=== PATIENT | male | born 1980 | race African-American/Black ===

== ENCOUNTER 2020-02-04 15:11 | Outpatient (REF) | payer OTHER, SELFPAY ==
[2020-02-04 16:19] LABS: Anion Gap 14 (12-20); Blood Urea Nitrogen 14 mg/dL (9-16); Calcium 9.7 mg/dL (8.4-10.2); Carbon Dioxide 27 mmol/L (22-29); Chloride 101 mmol/L (96-108); Estimated Glomerular Filt Rate > 60; Glucose Fasting 112 mg/dL (60-99); Potassium 4.6 mmol/l (3.3-5.1); Sodium 137 mmol/L (135-145)
[2020-02-05 07:46] LABS: Syphilis Screen Nonreactive (Nonreactive)
[2020-02-06 01:33] LABS: Lyme Abs Screen <0.90 index
== END 2020-02-04 15:12 | disposition home or self-care (01) ==
LOC: HO.LAB 15:11
PROVIDERS: PCP Internal Medicine; Visit Provider Psychiatry & Neurology Neurology
DX: G62.9 Polyneuropathy, unspecified (principal)
CPT/HCPCS: 80048; 86618; 86780

== ENCOUNTER → 2020-10-26 10:24 | Outpatient (BNVA) | payer SELFPAY | PROVIDERS: PCP Internal Medicine | DX: Z76.89 Persons encountering health services in other specified circumstances (principal) ==

== ENCOUNTER → 2021-10-06 10:49 | Outpatient (BNVA) | payer SELFPAY | PROVIDERS: PCP Internal Medicine | DX: Z02.83 Encounter for blood-alcohol and blood-drug test (principal) ==

== ENCOUNTER 2022-03-29 23:03 | Emergency (ER) | payer OTHER, SELFPAY ==
[2022-03-29 23:20] VITALS: BP 129/81; PULSE 106; O2SAT 95; BMI 23.8
--- NOTE | 2022-03-29 23:46 | ED_ITS ---
HPI - General Adult General Chief complaint: General Medical Stated complaint: elevated poc Time Seen by Provider: 03/29/22 23:45 Source: patient Mode of arrival: EMS Limitations: no limitations History of Present Illness HPI narrative: Patient borderline diabetic blood sugar usually less than 150 had increased alcohol last night and apple juice prior to arrival checked the blood sugar was 296 at home patient started feeling dizzy called EMS and patient came here blood sugar was 157 Related Data Allergies Allergy/AdvReac Type Severity Reaction Status Date / Time No Known Allergies Allergy Unverified 11/14/19 19:18 [No Known Allergies*] Review of Systems Review of Systems: Yes all other systems are reviewed and are negative [facility] Social History Social History Advance Directives: No Advance Directives Information Provided: No Physical Exam ED Vital Signs: Vital Signs - 24 hr 03/30/22 00:21 Temperature 97.6 F Pulse Rate 89 Respiratory Rate 12 Blood Pressure 136/93 H Pulse Oximetry 98 Oxygen Delivery Method Room Air BMI result Body Mass Index 23.8 Appearance: Alert. Oriented X3. No acute distress. Anxious Eyes: PERRLA, No Nystagmus ENT: Pharynx normal. Oral Mucosa moist Neck: Normal inspection. Neck supple. CVS: Normal heart rate and rhythm. Pulses normal. Respiratory: No respiratory distress. Equal air entry bilateral, no wheezing/rales/rhonchi Abdomen: Soft and nontender. Bowel sounds are present, no mass palpable, no CVA tenderness Skin: Skin warm and dry. Normal skin color. Normal skin turgor. Extremities: No lower extremity edema. No calf tenderness Neuro: Oriented X 3. No motor deficit. No sensory deficit. Medical Decision Making Medical Decision Making MDM Narrative: Patient advised diet control and exercise and follow with PCP for further management of diabetes Lab Data MDM Lab Attestation statement: I reviewed the patient's lab results. Labs: Lab Results 03/30/22 Range/Units 00:05 POC Glucose 157 H (60-115) mg/dL Discharge Plan Discharge Clinical Impression: Diabetes mellitus, new onset Patient Disposition: Home, Self-Care Instructions: Type 2 Diabetes in Adults: New Diagnosis (ED) Additional Instructions: Drink plenty of fluids Exercise, Diet restrictions as advised Avoid high glucose containing drinks Follow with PCP Interventions: ED Discharge Assessment Last Done: 03/30/22 00:22 Discharge Date/Time: 03/30/22 00:22
[2022-03-30 00:10] LABS: Glucose, Whole Blood 157 mg/dL (60-115)
--- NOTE | 2022-03-30 00:17 | PC.NURSE ---
IV line removed per pts request. Pt tolerated well. Discharge instructions reviewed with pt. Pt verbalizes understanding.
[2022-03-30 00:21] VITALS: BP 136/93; PULSE 89; RESP 12; TEMP 36.4; O2SAT 98
== END 2022-03-30 00:22 | disposition home or self-care (01) ==
PROVIDERS: Emergency Provider Internal Medicine; PCP Internal Medicine
DX: E11.9 Type 2 diabetes mellitus without complications (principal); R42 Dizziness and giddiness; Z79.899 Other long term (current) drug therapy
CPT/HCPCS: 82947; 99283

== ENCOUNTER 2022-11-03 15:31 | Inpatient (IN) | payer OTHER, SELFPAY ==
--- NOTE | ~2022-11-03 | CT_ITS ---
EXAMINATION: CT HEAD WITHOUT CONTRAST CT CERVICAL SPINE WITHOUT CONTRAST CLINICAL INFORMATION: Unwitnessed fall COMPARISON: None. TECHNIQUE: Imaging was performed from the skull base to vertex without intravenous administration of contrast. In addition, helical noncontrast CT imaging was acquired through the cervical spine and source images were reviewed along with axial reconstructions and sagittal and coronal MPRs. [This CT examination was performed using dose optimization techniques as appropriate, variously including the following: *Automated exposure control *Adjustment of mA and/or kV according to patient size (this includes techniques or standardized protocols for targeted exams where dose is matched to indication/reason for exam; i.e. extremities or head) *Use of iterative reconstruction technique] DLP: 1804 mGy-cm FINDINGS: HEAD: No intracranial mass, hemorrhage, or midline shift is visualized. The ventricles and sulci are proportional. No extra-axial collections are identified. The paranasal sinuses and mastoid air cells are well aerated. CERVICAL SPINE: There is no evidence of acute cervical spine fracture. Vertebral bodies remain normal in height. Cervical vertebrae have normal alignment. There is multilevel degenerative spondylosis of the cervical spine with disc height narrowing and endplate spurs and facet joint arthrosis No pre- or paravertebral soft tissue abnormality is identified. Limited assessment of the lung apices is unremarkable. CT/CT head/brain wo IV con IMPRESSION: 1. No acute intracranial pathology. 2. No CT evidence of acute cervical spine fracture or traumatic subluxation
--- NOTE | ~2022-11-03 | CT_ITS ---
EXAMINATION: CT HEAD WITHOUT CONTRAST CT CERVICAL SPINE WITHOUT CONTRAST CLINICAL INFORMATION: Unwitnessed fall COMPARISON: None. TECHNIQUE: Imaging was performed from the skull base to vertex without intravenous administration of contrast. In addition, helical noncontrast CT imaging was acquired through the cervical spine and source images were reviewed along with axial reconstructions and sagittal and coronal MPRs. [This CT examination was performed using dose optimization techniques as appropriate, variously including the following: *Automated exposure control *Adjustment of mA and/or kV according to patient size (this includes techniques or standardized protocols for targeted exams where dose is matched to indication/reason for exam; i.e. extremities or head) *Use of iterative reconstruction technique] DLP: 1804 mGy-cm FINDINGS: HEAD: No intracranial mass, hemorrhage, or midline shift is visualized. The ventricles and sulci are proportional. No extra-axial collections are identified. The paranasal sinuses and mastoid air cells are well aerated. CERVICAL SPINE: There is no evidence of acute cervical spine fracture. Vertebral bodies remain normal in height. Cervical vertebrae have normal alignment. There is multilevel degenerative spondylosis of the cervical spine with disc height narrowing and endplate spurs and facet joint arthrosis No pre- or paravertebral soft tissue abnormality is identified. Limited assessment of the lung apices is unremarkable. CT/CT cervical spine wo IV con IMPRESSION: 1. No acute intracranial pathology. 2. No CT evidence of acute cervical spine fracture or traumatic subluxation
--- NOTE | 2022-11-03 15:50 | ECG_ITS ---
Test Reason : tachycardia Blood Pressure : / mmHG Vent. Rate : 118 BPM Atrial Rate : 118 BPM P-R Int : 134 ms QRS Dur : 084 ms QT Int : 336 ms P-R-T Axes : 063 063 027 degrees QTc Int : 470 ms Sinus tachycardia Possible Lateral infarct , age undetermined Abnormal ECG When compared with ECG of 02-MAY-2017 21:35, Vent. rate has increased BY [address] no longer elevated in Anterior leads Referred By: Katheryn Naejra Electronically Signed By:SKY QUILES
[2022-11-03 15:54] VITALS: BP 158/94; BP 170/114; PULSE 117; PULSE 130; RESP 22; TEMP 36.9; O2SAT 99; BMI 25.8
[2022-11-03 16:02] LABS: Glucose, Whole Blood 160 mg/dL (60-115)
[2022-11-03] MEDS: LORazepam 2 MG/ML VIAL 1 MG IVPUSH (16:16)
[2022-11-03] MEDS: Thiamine HCL 200 MG in 0.9 % Sodium Chloride 100 ML 204 MG IV (16:16)
[2022-11-03] MEDS: 0.9 % Sodium Chloride 1,000 ML 999 ML IVCONT (16:17)
[2022-11-03 16:36] LABS: MANUAL DIFF FLAG NO
[2022-11-03 16:38] LABS: VBG Base Excess -4.5 mmol/L; VBG HCO3 18 mmol/L (22-26); VBG pCO2 28 mmHg; VBG pH 7.41 (7.32-7.43); VBG pO2 103 mmHg
[2022-11-03 16:41] LABS: Venous Blood Gas Refer to POC result
[2022-11-03 16:44] LABS: Ammonia 54 umol/L (13-55); Basophils Percent Auto 0.5 % (0-2); Eosinophils Absolute Auto 0.2 X10*3/uL (0.0-0.4); Eosinophils Percent Auto 2.6 % (0-4); Hematocrit 46.6 % (42.0-52.0); Hemoglobin 16.1 g/dl (14.0-18.0); Imm Gran Abs Auto 0.02 X10*3/uL (0.00-0.03); Imm Gran Pct Auto 0.3 % (0.0-0.4); Lymphocytes Absolute Auto 1.8 X10*3/uL (1.2-4.9); Lymphocytes Percent Auto 27.9 % (20-40); Mean Corpuscular HGB Conc 34.5 g/dl (31.0-36.0); Mean Corpuscular Hemoglobin 31.1 pg (27.0-33.0); Mean Platelet Volume 11.7 fL (9.4-12.4); Monocytes Absolute Auto 0.3 X10*3/uL (0.1-1.2); Monocytes Percent Auto 3.9 % (2-11); Neutrophils Absolute Auto 4.2 x10*3/uL (2.0-8.3); Neutrophils Percent Auto 64.8 % (45-73); Platelet Count 235 X10*3/uL (160-400); Red Blood Count 5.18 X10*6/uL (4.60-5.80); Red Cell Distribution Width 11.1 % (11.0-16.0); White Blood Count 6.5 X10*3/uL (4.8-10.8)
[2022-11-03 16:50] LABS: Ethanol 354 mg/dL
[2022-11-03 16:53] LABS: Alanine Aminotransferase 76 U/L (0-40); Albumin Level 4.6 g/dL (3.5-5.0); Alkaline Phosphatase 69 U/L (39-117); Anion Gap 20 (12-20); Aspartate Amino Transferase 48 U/L (5-37); Bilirubin Direct 0.4 mg/dL (0.0-0.5); Bilirubin Total 1.3 mg/dL (0.0-1.0); Blood Urea Nitrogen 8 mg/dL (9-16); Carbon Dioxide 18 mmol/L (22-29); Chloride 106 mmol/L (96-108); Creatinine Clr Calc Pharmacy 138.5; Estimated Glomerular Filt Rate > 60; Glucose Random 130 mg/dL (60-115); Lipase 27 U/L (8-78); Magnesium 2.3 mg/dL (1.6-2.6); Potassium 3.5 mmol/L (3.3-5.1); Sodium 140 mmol/L (135-145); Total Protein 7.9 g/dL (6.5-8.0)
[2022-11-03 16:54] LABS: Prothrombin Time 12.4 SEC (11.1-13.3)
[2022-11-03 16:55] LABS: Acetaminophen LAB < 17 mcg/mL (<30); Salicylate < 5.0 mg/dL (15-30)
[2022-11-03 17:05] LABS: Appearance Urine Clear; Color Urine Yellow; Glucose Urine UA Negative (Negative); Leukocyte Esterase Urine Negative (Negative); Nitrite Urine Negative (Negative); Specific Gravity - Urine <= 1.005 (1.005-1.025); Urine Blood Negative (Negative); Urine Ketones Negative (Negative); Urine Protein Negative (Neg-Trace)
[2022-11-03 17:08] LABS: Troponin-I High Sensitivity < 2.7 ng/L (<3.5-35.0)
[2022-11-03 17:15] VITALS: BP 126/80; PULSE 114; RESP 22; O2SAT 99
[2022-11-03] MEDS: 0.9 % Sodium Chloride 2,000 ML 999 ML IV (17:16)
[2022-11-03 17:20] LABS: Amphetamine Screen Urine Not Detected (Not Detect); Barbiturates, Urine Not Detected (Not Detect); Benzodiazepines Screen Urine Not Detected (Not Detect); Cannabinoid Screen Urine Not Detected (Not Detect); Cocaine Screen Urine Not Detected (Not Detect); Fentanyl, urine Not Detected (Not Detect); Opiate Screen Urine Not Detected (Not Detect); Phencyclidine Screen Urine Not Detected (Not Detect)
--- NOTE | 2022-11-03 17:30 | ED_ITS ---
HPI - Altered Mental Status General Chief Complaint: Altered Mental Status Stated Complaint: AMS Time Seen by Provider: 11/03/22 16:01 Source: patient Mode of arrival: EMS History of Present Illness HPI narrative: 42-year-old male with significant difficulty providing any history is brought in by EMS after his uncle checked up on him at home and found the patient on the floor confused and incontinent of urine. Patient denies pain anywhere in his body currently, knows that he is in [place]. He does state that he last drank [place] this morning. Related Data Previous Rx's Medication Instructions Recorded cyclobenzaprine 10 mg tablet 10 mg PO TID PRN muscle spasm #14 06/23/22 tabs Allergies Allergy/AdvReac Type Severity Reaction Status Date / Time No Known Allergies Allergy Unverified 06/23/22 13:15 [No Known Allergies*] Review of Systems 2 Review of Systems: Pertinent positives and negatives as stated in HPI PMFSH Past Medical History Source: nursing notes reviewed Social History Social History Alcohol intake: current Patient Tobacco Use Status: Never used Tobacco Use of substances other than those prescribed or required for medical reasons: No Advance Directives: No Advance Directives Information Provided: No Physical Exam ED Vital Signs: Vital Signs - 24 hr 11/03/22 15:54 11/03/22 17:15 11/03/22 17:55 Temperature 98.4 F Pulse Rate 117 H 114 H 99 Respiratory Rate 22 H 22 H 16 Blood Pressure 158/94 H 126/80 115/73 Pulse Oximetry 99 99 98 Oxygen Delivery Method Room Air Room Air Room Air 11/03/22 18:27 11/03/22 22:09 Temperature 98.7 F Pulse Rate 94 112 H Respiratory Rate 22 H 17 Blood Pressure 119/71 124/93 H Pulse Oximetry 97 97 Oxygen Delivery Method Room Air Room Air BMI result Body Mass Index 25.8 VITAL SIGNS: Reviewed. GENERAL: Well developed, well nourished, in no acute distress, smells of alcohol. HEAD: Normocephalic/atraumatic EYES: PERRLA, EOMI EARS: Ext canals without abnormality NOSE: Nares patent bilateral OROPHARYNX: no oral lesions noted, posterior pharynx clear NECK: Supple, no adenopathy LUNGS: Normal breath sounds. No adventitious sounds or accessory muscle use. SpO2<99> CARDIOVASCULAR: Regular rate and rhythm without noted murmurs ABDOMEN: Soft, non-tender, non-distended with bowel sounds. MUSCULOSKELETAL: No tenderness, deformities, or effusions noted on gross inspection. EXTREMITIES: No cyanosis, clubbing or edema. SKIN: Inspection of the skin reveals no rashes NEUROLOGIC: Alert and oriented x 3. Strength and sensation to light touch were grossly intact x 4. Medications Administered Discontinued Medications Generic Name Dose Route Start Last Admin Trade Name Freq PRN Reason Stop Dose Admin Sodium Chloride 1,000 mls @ 999 mls/hr 11/03/22 16:00 11/03/22 17:57 Ns IVCONT 11/03/22 17:00 Infused .Q1H1M TEODORA Infusion Thiamine HCl 200 mg/ Sodium 102 mls @ 204 mls/hr 11/03/22 15:51 11/03/22 16:57 Chloride IV 11/03/22 16:20 Infused ONCE ONE Infusion Sodium Chloride 2,000 mls @ 999 mls/hr 11/03/22 17:15 11/03/22 19:28 Ns IV 11/03/22 19:15 Infused .Q2H1M TEODORA Infusion Lactated Ringer's 1,000 mls @ 999 mls/hr 11/03/22 21:00 11/03/22 21:26 Lr IV 11/03/22 22:00 999 mls/hr .Q1H1M TEODORA Administration Lorazepam 1 mg 11/03/22 15:51 11/03/22 16:16 Lorazepam 2 Mg/Ml Vial IVPUSH 11/03/22 15:52 1 mg STAT STA Administration Medical Decision Making Medical Decision Making [facility] Narrative: 1715: 42-year-old male with history and clinical presentation, DDX: Possible fall with intracranial hemorrhage, alcohol intoxication, seizure, infection. I reviewed all investigations and hematologic indices are grossly within normal limits without leukocytosis/left shift/anemia/thrombocytopenia. Coagulation studies are grossly within normal limits. VBG does not demonstrate any respiratory acidosis. Chemistry indices demonstrate a mild metabolic acidosis likely secondary to lactic acidosis of 5 which is not associated with any evidence of infection and instead suspect alcoholic ketoacidosis. On repeat lactic acid this has improved after IV fluids. There is mild CPK elevation but again patient did receive a total of 3 L of IV fluids, high sensitivity troponin is undetectable and there is an elevation of liver enzymes although this is likely secondary to patient's alcohol use. He has no corresponding abdominal discomfort or jaundice to otherwise suggest a cholecystitis picture. Urinalysis is negative for UTI or hematuria and toxicology is negative for evidence of salicylate or acetaminophen poisoning, UDS is negative for occult drugs and ethyl alcohol is elevated as suspected to 354. CT scan negative for intracranial hemorrhage and no evidence of cervical spine fracture or subluxation. Otherwise, my interpretation of the CT scans are in agreement with radiology's impression. 2044: I re-evaluated the patient at bedside and he states he is feeling much better and denies ever having any seizures associated with alcohol withdrawal. He is otherwise ambulating with a steady gait. His family to include his are at bedside and he states that he wishes to seek inpatient detox. Patient is otherwise medically cleared for further evaluation for placement for alcohol detox. Patient placed in physician observation because the patient needed more time for evaluation and possible placement by the care team into an inpatient alcohol detox.. At the time observation was started the patient's vital signs were stable, patient is alert and oriented, neuro: Nonfocal, CV RRR, lungs clear 2313: I trended patient's lactic acid which showed minimal improvement, patient is afebrile there is no clinical suspicion for infectious etiology and I suspect that this is metabolically driven by a combination rhabdomyolysis and at alcoholic ketoacidosis. Patient is noted to be tachycardic and at this time I am making the decision to admit the patient for further observation and have placed him on a phenobarb protocol and discussed the case with the inpatient hospitalist who accepts admission. Differential Diagnosis Differential Diagnoses: The differential diagnosis associated with the presentation includes Please see the discussion above Admission/Observation Consideration of admission/observation: Escalation of care including admission/observation considered Please see the discussion above Consult Healthcare Provider Management of the patient was discussed with: Clinical Practice Consultant Please see the discussion above Lab Data MDM Lab Attestation statement: I reviewed the patient's lab results. Please see the discussion above 11/03/22 16:26 11/03/22 16:26 Labs: Lab Results 11/03/22 11/03/22 11/03/22 Range/Units 15:51 16:26 16:27 WBC 6.5 (4.8-10.8) X10*3/uL RBC 5.18 (4.60-5.80) X10*6/uL Hgb 16.1 (14.0-18.0) g/dl Hct 46.6 (42.0-52.0) % MCV 90.0 (80.0-98.0) fL MCH 31.1 (27.0-33.0) pg MCHC 34.5 (31.0-36.0) g/dl RDW 11.1 (11.0-16.0) % Plt Count 235 (160-400) X10*3/uL MPV 11.7 (9.4-12.4) fL Immature Gran % (Auto) 0.3 (0.0-0.4) % Neut % (Auto) 64.8 (45-73) % Lymph % (Auto) 27.9 (20-40) % Sabine % (Auto) 3.9 (2-11) % Eos % (Auto) 2.6 (0-4) % Baso % (Auto) 0.5 (0-2) % Lymph # (Auto) 1.8 (1.2-4.9) X10*3/uL Sabine # (Auto) 0.3 (0.1-1.2) X10*3/uL Eos # (Auto) 0.2 (0.0-0.4) X10*3/uL Baso # (Auto) 0.0 (0.0-0.2) X10*3/uL Abs Immat Gran (auto) 0.02 (0.00-0.03) X10*3/uL Absolute Neuts (auto) 4.2 (2.0-8.3) x10*3/uL Absolute Nucleated RBC 0.000 (0.0-0.012) X10*3/uL Nucleated RBC % (auto) 0.0 (0.0-0.2) /100WBC PT 12.4 (11.1-13.3) SEC INR 1.0 (0.9-1.1) VBG pH (7.32-7.43) VBG pCO2 mmHg VBG pO2 mmHg VBG HCO3 (22-26) mmol/L VBG O2 Saturation % VBG Base Excess mmol/L Sodium 140 (135-145) mmol/L Potassium 3.5 (3.3-5.1) mmol/L Chloride 106 (96-108) mmol/L Carbon Dioxide 18 L (22-29) mmol/L Anion Gap 20 (12-20) BUN 8 L (9-16) mg/dL Creatinine 0.77 (0.5-1.4) mg/dL Estim Creat Clear Calc 138.5 Estimated GFR > 60 POC Glucose 160 H (60-115) mg/dL Random Glucose 130 H (60-115) mg/dL Lactic Acid 5.0 H* (0.5-2.0) mmol/L Lactic Acid F/U @ 2Hr (0.5-2.0) mmol/L Lactic Acid F/U @ 4Hr (0.5-2.0) mmol/L Calcium 9.0 D (8.4-10.2) mg/dL Magnesium 2.3 (1.6-2.6) mg/dL Total Bilirubin 1.3 H (0.0-1.0) mg/dL Direct Bilirubin 0.4 (0.0-0.5) mg/dL AST 48 H (5-37) U/L ALT 76 H (0-40) U/L Alkaline Phosphatase 69 (39-117) U/L Ammonia 54 (13-55) umol/L Total Creatine Kinase 580 H (38-174) U/L Troponin I High Sens < 2.7 (<3.5-35.0) ng/L Total Protein 7.9 (6.5-8.0) g/dL Albumin 4.6 (3.5-5.0) g/dL Lipase 27 (8-78) U/L Urine Color Urine Appearance Urine pH (5.0-9.0) Ur Specific Chase (1.005-1.025) Urine Protein (Neg-Trace) mg/dL Urine Glucose (UA) (Negative) mg/dL Urine Ketones (Negative) mg/dL Urine Blood (Negative) Urine Nitrite (Negative) Ur Leukocyte Esterase (Negative) Salicylates < 5.0 L (15-30) mg/dL Urine Opiates Screen (Not Detect) Urine Fentanyl Screen (Not Detect) Acetaminophen < 17 (<30) mcg/mL Ur Barbiturates Screen (Not Detect) Ur Phencyclidine Scrn (Not Detect) Ur Amphetamines Screen (Not Detect) U Benzodiazepines Scrn (Not Detect) Urine Cocaine Screen (Not Detect) U Marijuana (THC) Screen (Not Detect) Ethyl Alcohol 354 H* mg/dL 11/03/22 11/03/22 11/03/22 Range/Units 16:31 16:46 19:44 WBC (4.8-10.8) X10*3/uL RBC (4.60-5.80) X10*6/uL Hgb (14.0-18.0) g/dl Hct (42.0-52.0) % MCV (80.0-98.0) fL MCH (27.0-33.0) pg MCHC (31.0-36.0) g/dl RDW (11.0-16.0) % Plt Count (160-400) X10*3/uL MPV (9.4-12.4) fL Immature Gran % (Auto) (0.0-0.4) % Neut % (Auto) (45-73) % Lymph % (Auto) (20-40) % Sabine % (Auto) (2-11) % Eos % (Auto) (0-4) % Baso % (Auto) (0-2) % Lymph # (Auto) (1.2-4.9) X10*3/uL Sabine # (Auto) (0.1-1.2) X10*3/uL Eos # (Auto) (0.0-0.4) X10*3/uL Baso # (Auto) (0.0-0.2) X10*3/uL Abs Immat Gran (auto) (0.00-0.03) X10*3/uL Absolute Neuts (auto) (2.0-8.3) x10*3/uL Absolute Nucleated RBC (0.0-0.012) X10*3/uL Nucleated RBC % (auto) (0.0-0.2) /100WBC PT (11.1-13.3) SEC INR (0.9-1.1) VBG pH 7.41 (7.32-7.43) VBG pCO2 28 mmHg VBG pO2 103 mmHg VBG HCO3 18 L (22-26) mmol/L VBG O2 Saturation 97.0 % VBG Base Excess -4.5 mmol/L Sodium (135-145) mmol/L Potassium (3.3-5.1) mmol/L Chloride (96-108) mmol/L Carbon Dioxide (22-29) mmol/L Anion Gap (12-20) BUN (9-16) mg/dL Creatinine (0.5-1.4) mg/dL Estim Creat Clear Calc Estimated GFR POC Glucose (60-115) mg/dL Random Glucose (60-115) mg/dL Lactic Acid (0.5-2.0) mmol/L Lactic Acid F/U @ 2Hr 4.3 H* (0.5-2.0) mmol/L Lactic Acid F/U @ 4Hr (0.5-2.0) mmol/L Calcium (8.4-10.2) mg/dL Magnesium (1.6-2.6) mg/dL Total Bilirubin (0.0-1.0) mg/dL Direct Bilirubin (0.0-0.5) mg/dL AST (5-37) U/L ALT (0-40) U/L Alkaline Phosphatase (39-117) U/L Ammonia (13-55) umol/L Total Creatine Kinase (38-174) U/L Troponin I High Sens (<3.5-35.0) ng/L Total Protein (6.5-8.0) g/dL Albumin (3.5-5.0) g/dL Lipase (8-78) U/L Urine Color Yellow Urine Appearance Clear Urine pH 6.0 (5.0-9.0) Ur Specific Chase <= 1.005 (1.005-1.025) Urine Protein Negative (Neg-Trace) mg/dL Urine Glucose (UA) Negative (Negative) mg/dL Urine Ketones Negative (Negative) mg/dL Urine Blood Negative (Negative) Urine Nitrite Negative (Negative) Ur Leukocyte Esterase Negative (Negative) Salicylates (15-30) mg/dL Urine Opiates Screen Not Detected (Not Detect) Urine Fentanyl Screen Not Detected (Not Detect) Acetaminophen (<30) mcg/mL Ur Barbiturates Screen Not Detected (Not Detect) Ur Phencyclidine Scrn Not Detected (Not Detect) Ur Amphetamines Screen Not Detected (Not Detect) U Benzodiazepines Scrn Not Detected (Not Detect) Urine Cocaine Screen Not Detected (Not Detect) U Marijuana (THC) Screen Not Detected (Not Detect) Ethyl Alcohol mg/dL 11/03/22 Range/Units 22:05 WBC (4.8-10.8) X10*3/uL RBC (4.60-5.80) X10*6/uL Hgb (14.0-18.0) g/dl Hct (42.0-52.0) % MCV (80.0-98.0) fL MCH (27.0-33.0) pg MCHC (31.0-36.0) g/dl RDW (11.0-16.0) % Plt Count (160-400) X10*3/uL MPV (9.4-12.4) fL Immature Gran % (Auto) (0.0-0.4) % Neut % (Auto) (45-73) % Lymph % (Auto) (20-40) % Sabine % (Auto) (2-11) % Eos % (Auto) (0-4) % Baso % (Auto) (0-2) % Lymph # (Auto) (1.2-4.9) X10*3/uL Sabine # (Auto) (0.1-1.2) X10*3/uL Eos # (Auto) (0.0-0.4) X10*3/uL Baso # (Auto) (0.0-0.2) X10*3/uL Abs Immat Gran (auto) (0.00-0.03) X10*3/uL Absolute Neuts (auto) (2.0-8.3) x10*3/uL Absolute Nucleated RBC (0.0-0.012) X10*3/uL Nucleated RBC % (auto) (0.0-0.2) /100WBC PT (11.1-13.3) SEC INR (0.9-1.1) VBG pH (7.32-7.43) VBG pCO2 mmHg VBG pO2 mmHg VBG HCO3 (22-26) mmol/L VBG O2 Saturation % VBG Base Excess mmol/L Sodium (135-145) mmol/L Potassium (3.3-5.1) mmol/L Chloride (96-108) mmol/L Carbon Dioxide (22-29) mmol/L Anion Gap (12-20) BUN (9-16) mg/dL Creatinine (0.5-1.4) mg/dL Estim Creat Clear Calc Estimated GFR POC Glucose (60-115) mg/dL Random Glucose (60-115) mg/dL Lactic Acid (0.5-2.0) mmol/L Lactic Acid F/U @ 2Hr (0.5-2.0) mmol/L Lactic Acid F/U @ 4Hr 4.0 H* (0.5-2.0) mmol/L Calcium (8.4-10.2) mg/dL Magnesium (1.6-2.6) mg/dL Total Bilirubin (0.0-1.0) mg/dL Direct Bilirubin (0.0-0.5) mg/dL AST (5-37) U/L ALT (0-40) U/L Alkaline Phosphatase (39-117) U/L Ammonia (13-55) umol/L Total Creatine Kinase (38-174) U/L Troponin I High Sens (<3.5-35.0) ng/L Total Protein (6.5-8.0) g/dL Albumin (3.5-5.0) g/dL Lipase (8-78) U/L Urine Color Urine Appearance Urine pH (5.0-9.0) Ur Specific Chase (1.005-1.025) Urine Protein (Neg-Trace) mg/dL Urine Glucose (UA) (Negative) mg/dL Urine Ketones (Negative) mg/dL Urine Blood (Negative) Urine Nitrite (Negative) Ur Leukocyte Esterase (Negative) Salicylates (15-30) mg/dL Urine Opiates Screen (Not Detect) Urine Fentanyl Screen (Not Detect) Acetaminophen (<30) mcg/mL Ur Barbiturates Screen (Not Detect) Ur Phencyclidine Scrn (Not Detect) Ur Amphetamines Screen (Not Detect) U Benzodiazepines Scrn (Not Detect) Urine Cocaine Screen (Not Detect) U Marijuana (THC) Screen (Not Detect) Ethyl Alcohol mg/dL Independent Interpretation I performed an independent interpretation of an: EKG Interpretation: Sinus tachycardia, HR-118, no STEMI, NE/QRS/QTC is within normal limits. Radiology Impression Discussion of test interpretation with radiology: I have reviewed the radiologist's reading. Radiologist Impression: Please see the discussion above External Record Review External record reviewed: Office record, Outpatient record, Prior outpatient labs and Prior outpatient radiology Chronic Conditions Patient?s care impacted by: Diabetes Social Determinants Patient?s care significantly limited by Social Determinants of Health including: Alcoholism and drug addiction in family Critical Care Time Critical Care Time Critical Care Time: Yes Total Critical Care Time: 30 Attestation: I personally attest to this time spent taking care of the patient. Discharge Plan Discharge Clinical Impression: Alcoholic intoxication, Alcohol use disorder, moderate, dependence, Alcohol withdrawal, Alcoholic ketoacidosis, Rhabdomyolysis Patient Disposition: Admitted As Inpatient Prescriptions: No Action cyclobenzaprine 10 mg tablet 10 mg PO TID PRN (Reason: muscle spasm) Qty: 14 0RF
[2022-11-03 17:55] VITALS: BP 115/73; PULSE 99; RESP 16; O2SAT 98
[2022-11-03 18:27] VITALS: BP 119/71; PULSE 94; RESP 22; O2SAT 97
[2022-11-03 18:35] LABS: Reflex Lactate? Lactic Acid Added
[2022-11-03 20:17] LABS: ~Lactic Acid-LAB USE ONLY 4.3 mmol/L (0.5-2.0)
[2022-11-03] MEDS: Lactated Ringers 1,000 ML 999 ML IV (21:26)
[2022-11-03 21:47] LABS: Reflex Lactate? 2 Y
[2022-11-03 22:09] VITALS: BP 124/93; PULSE 112; RESP 17; TEMP 37.1; O2SAT 97
--- NOTE | 2022-11-03 22:14 | PC.NURSE ---
Pt's sisters left the bedside. Left phone numbers for updates: [phone]
[2022-11-03] MEDS: PHENobarbitaL sodium 130 MG/ML IM ONCE 374 MG IM (23:53)
--- NOTE | 2022-11-03 23:59 | P.HPHOSP_ITS ---
History of Present Illness Date of Service: 11/03/22 Chief Complaint: alcohol intoxication 42-year-old male with prediabetes comes into the hospital after on-call found him to be down. I spoke to his over the phone states that he has been drinking excessively for the past 3 days but has no history of alcohol abuse. Patient himself says that he had alcohol poisoning. He is now alert oriented, answering questions appropriately. Patient denies any chest pain, no shortness of breath, no abdominal pain nausea or vomiting, no diarrhea constipation, no urinary symptoms and no lower extremity edema. On arrival to the ED patient was found to be tachycardic with a heart rate in the 140s, sinus Labs are significant for lactic acid of 5.0 that improved to 4.0 after 4 L of fluids, AST of 48, ALT of 76, CPK of 580 Urine drug screen showed alcohol level of [address] negative, cervical CT negative Given the elevated lactic acid and requiring IV fluids patient will be admitted for observation Review of Systems 2 Review of Systems: Yes all other systems are reviewed and are negative [facility] Medical History Pre-diabetes Surgical History No pertinent past surgical history Social History Alcohol intake: current Patient Tobacco Use Status: Never used Tobacco Use of substances other than those prescribed or required for medical reasons: No Advance Directives: No Advance Directives Information Provided: No Meds Allergies Allergy/AdvReac Type Severity Reaction Status Date / Time No Known Allergies Allergy Unverified 06/23/22 13:15 [No Known Allergies*] Active Medications: Current Medications Pharmacy Consult (Consult Rx Etoh Phenob Im/Po) 1 each MISCELLANE ONCE PRN; Protocol PRN Reason: Consult order Phenobarbital Sodium (Phenobarbital Sodium 130 Mg/Ml Vial Im Q3hx2) 281 mg IM Q3H TEODORA Stop: 11/04/22 05:31 Physical Exam 2 Vital Signs and Narrative: Vital Signs: Last Vital Signs Temp 98.7 F 11/03/22 22:09 Pulse 112 H 11/03/22 22:09 Resp 17 11/03/22 22:09 BP 124/93 H 11/03/22 22:09 Pulse Ox 97 11/03/22 22:09 O2 Del Method Room Air 11/03/22 22:09 BMI result Body Mass Index 25.8 Const: General: cooperative and no acute distress O rientation/consciousness: patient oriented x3 Eyes: General: appearance normal, both eyes and all related structures Resp: Effort & Inspection: normal respiratory effort Auscultation: clear to auscultation bilaterally Cardio: Rate: regular rate Rhythm: regular rhythm GI: Palpation (GI): Soft to palpation Auscultation: normal bowel sounds Skin: General skin exam: no rashes or lesions noted Neuro: Other: No neurological deficits General: patient oriented x3 Cognition (Neuro): normal cognition Extrem: General: Yes normal to inspection and Yes no pedal edema Results Labs 11/03/22 16:26 11/03/22 16:26 Labs: Laboratory Results - last 24 hr 11/03/22 11/03/22 11/03/22 15:51 16:26 16:27 MCV 90.0 MCH 31.1 MCHC 34.5 RDW 11.1 Plt Count 235 MPV 11.7 Immature Gran % (Auto) 0.3 Neut % (Auto) 64.8 Lymph % (Auto) 27.9 [place] % (Auto) 3.9 Eos % (Auto) 2.6 Baso % (Auto) 0.5 Lymph # (Auto) 1.8 [place] # (Auto) 0.3 Eos # (Auto) 0.2 Baso # (Auto) 0.0 Abs Immat Gran (auto) 0.02 Absolute Neuts (auto) 4.2 Absolute Nucleated RBC 0.000 Nucleated RBC % (auto) 0.0 PT 12.4 INR 1.0 VBG pH VBG pCO2 VBG pO2 VBG HCO3 VBG O2 Saturation VBG Base Excess Anion Gap 20 Estim Creat Clear Calc 138.5 Estimated GFR > 60 POC Glucose 160 H Random Glucose 130 H Lactic Acid 5.0 H* Lactic Acid F/U @ 2Hr Lactic Acid F/U @ 4Hr Calcium 9.0 D Magnesium 2.3 Total Bilirubin 1.3 H Direct Bilirubin 0.4 AST 48 H ALT 76 H Alkaline Phosphatase 69 Ammonia 54 Total Creatine Kinase 580 H Total Protein 7.9 Albumin 4.6 Lipase 27 Urine Color Urine Appearance Urine pH Ur Specific [place] Urine Protein Urine Glucose (UA) Urine Ketones Urine Blood Urine Nitrite Ur Leukocyte Esterase Salicylates < 5.0 L Urine Opiates Screen Urine Fentanyl Screen Acetaminophen < 17 Ur Barbiturates Screen Ur Phencyclidine Scrn Ur Amphetamines Screen U Benzodiazepines Scrn Urine Cocaine Screen U Marijuana (THC) Screen Ethyl Alcohol 354 H* 11/03/22 11/03/22 11/03/22 16:31 16:46 19:44 MCV MCH MCHC RDW Plt Count MPV Immature Gran % (Auto) Neut % (Auto) Lymph % (Auto) [place] % (Auto) Eos % (Auto) Baso % (Auto) Lymph # (Auto) [place] # (Auto) Eos # (Auto) Baso # (Auto) Abs Immat Gran (auto) Absolute Neuts (auto) Absolute Nucleated RBC Nucleated RBC % (auto) PT INR VBG pH 7.41 VBG pCO2 28 VBG pO2 103 VBG HCO3 18 L VBG O2 Saturation 97.0 VBG Base Excess -4.5 Anion Gap Estim Creat Clear Calc Estimated GFR POC Glucose Random Glucose Lactic Acid Lactic Acid F/U @ 2Hr 4.3 H* Lactic Acid F/U @ 4Hr Calcium Magnesium Total Bilirubin Direct Bilirubin AST ALT Alkaline Phosphatase Ammonia Total Creatine Kinase Total Protein Albumin Lipase Urine Color Yellow Urine Appearance Clear Urine pH 6.0 Ur Specific [place] <= 1.005 Urine Protein Negative Urine Glucose (UA) Negative Urine Ketones Negative Urine Blood Negative Urine Nitrite Negative Ur Leukocyte Esterase Negative Salicylates Urine Opiates Screen Not Detected Urine Fentanyl Screen Not Detected Acetaminophen Ur Barbiturates Screen Not Detected Ur Phencyclidine Scrn Not Detected Ur Amphetamines Screen Not Detected U Benzodiazepines Scrn Not Detected Urine Cocaine Screen Not Detected U Marijuana (THC) Screen Not Detected Ethyl Alcohol 11/03/22 22:05 MCV MCH MCHC RDW Plt Count MPV Immature Gran % (Auto) Neut % (Auto) Lymph % (Auto) [place] % (Auto) Eos % (Auto) Baso % (Auto) Lymph # (Auto) [place] # (Auto) Eos # (Auto) Baso # (Auto) Abs Immat Gran (auto) Absolute Neuts (auto) Absolute Nucleated RBC Nucleated RBC % (auto) PT INR VBG pH VBG pCO2 VBG pO2 VBG HCO3 VBG O2 Saturation VBG Base Excess Anion Gap Estim Creat Clear Calc Estimated GFR POC Glucose Random Glucose Lactic Acid Lactic Acid F/U @ 2Hr Lactic Acid F/U @ 4Hr 4.0 H* Calcium Magnesium Total Bilirubin Direct Bilirubin AST ALT Alkaline Phosphatase Ammonia Total Creatine Kinase Total Protein Albumin Lipase Urine Color Urine Appearance Urine pH Ur Specific [place] Urine Protein Urine Glucose (UA) Urine Ketones Urine Blood Urine Nitrite Ur Leukocyte Esterase Salicylates Urine Opiates Screen Urine Fentanyl Screen Acetaminophen Ur Barbiturates Screen Ur Phencyclidine Scrn Ur Amphetamines Screen U Benzodiazepines Scrn Urine Cocaine Screen U Marijuana (THC) Screen Ethyl Alcohol Imaging Radiologist's Impressions: Impressions Cervical Spine CT 11/03/22 17:34 IMPRESSION: 1. No acute intracranial pathology. 2. No CT evidence of acute cervical spine fracture or traumatic subluxation Head CT 11/03/22 17:34 IMPRESSION: 1. No acute intracranial pathology. 2. No CT evidence of acute cervical spine fracture or traumatic subluxation Assessment and Plan (1) Alcoholic ketoacidosis: Status: Acute (2) Rhabdomyolysis: Qualifiers: Rhabdomyolysis type: non-traumatic Qualified Code(s): M62.82 - Rhabdomyolysis Status: Acute (3) Alcoholic intoxication: Status: Acute Plan 42-year-old male with no significant past medical history comes into the hospital with complaints of alcohol intoxication # alcoholic ketoacidosis - IV fluids - follow lactic acid # rhabdomyolysis - secondary to mechanical fall after alcohol intoxication - IV fluid - follow CPK # transaminitis - likely secondary to alcohol abuse - follow LFTs # alcohol intoxication - now sober - no history of alcohol abuse - will place on CIWA - addiction medicine consult DVT ppx: early ambulation Time Spent With Patient Time: Total time managing care of this patient today ____ minutes. Quality Stroke Does the patient have a stroke diagnosis?: No VTE Prior VTE?: No VTE Risk Level:: Medical - low VTE Device Contraindication: Treatment Not Indicated VTE Drug Contraindication: Treatment Not Indicated
--- NOTE | 2022-11-03 23:59 | PC.NURSE ---
med rec complete - pt reports no home medications.
[2022-11-04] VITALS (7 sets, daily range): BP systolic 119–157; BP diastolic 65–88; PULSE 76–94; RESP 15–20; TEMP 36.1–36.9; O2SAT 94–99
[2022-11-04] MEDS: Lactated Ringers 1,000 ML 100 ML IVCONT (00:26)
[2022-11-04] MEDS: 0.9 % Sodium Chloride Flush 3 ML SYRINGE IVFLUSH ×3 (00:26→22:35)
[2022-11-04] MEDS: PHENobarbitaL sodium 130 MG/ML VIAL IM Q3Hx2 281 MG IM ×2 (02:40→05:31)
[2022-11-04 06:05] LABS: MANUAL DIFF FLAG NO
[2022-11-04 06:19] LABS: Basophils Absolute Auto 0.1 X10*3/uL (0.0-0.2); Basophils Percent Auto 0.9 % (0-2); Eosinophils Absolute Auto 0.1 X10*3/uL (0.0-0.4); Eosinophils Percent Auto 0.8 % (0-4); Hematocrit 41.8 % (42.0-52.0); Hemoglobin 14.3 g/dl (14.0-18.0); Imm Gran Abs Auto 0.01 X10*3/uL (0.00-0.03); Imm Gran Pct Auto 0.2 % (0.0-0.4); Lymphocytes Absolute Auto 2.8 X10*3/uL (1.2-4.9); Lymphocytes Percent Auto 43.4 % (20-40); Mean Corpuscular HGB Conc 34.2 g/dl (31.0-36.0); Mean Corpuscular Hemoglobin 31.4 pg (27.0-33.0); Mean Corpuscular Volume 91.7 fL (80.0-98.0); Monocytes Absolute Auto 0.5 X10*3/uL (0.1-1.2); Monocytes Percent Auto 6.9 % (2-11); Neutrophils Absolute Auto 3.1 x10*3/uL (2.0-8.3); Neutrophils Percent Auto 47.8 % (45-73); Platelet Count 214 X10*3/uL (160-400); Red Blood Count 4.56 X10*6/uL (4.60-5.80); Red Cell Distribution Width 11.2 % (11.0-16.0); White Blood Count 6.5 X10*3/uL (4.8-10.8)
[2022-11-04 06:21] LABS: Anion Gap 17 (12-20); Blood Urea Nitrogen 7 mg/dL (9-16); Calcium 8.7 mg/dL (8.4-10.2); Carbon Dioxide 20 mmol/L (22-29); Chloride 110 mmol/L (96-108); Creatinine Clr Calc Pharmacy 138.5; Estimated Glomerular Filt Rate > 60; Glucose Random 103 mg/dL (60-115); Potassium 3.8 mmol/L (3.3-5.1); Sodium 143 mmol/L (135-145)
--- NOTE | 2022-11-04 08:39 | PHA.MEDREC ---
Pharmacy Consult ? Medication Reconciliation Pharmacy has completed the medication reconciliation. PT reported no home meds per nurse Slater's note.
[2022-11-04] MEDS: ondansetron HCL 4 MG/2 ML VIAL IVPUSH (09:11)
[2022-11-04] MEDS: PHENobarbitaL 30 MG TABLET 60 MG PO (09:11)
[2022-11-04] MEDS: Lactated Ringers 1,000 ML 125 ML IVCONT (11:59)
--- NOTE | 2022-11-04 12:39 | PC.NURSE ---
No need for cardiac monitoring per Dr. Kerr
--- NOTE | 2022-11-04 16:34 | PC.NURSE ---
TCK 1908 done at 1319,Dr. Kerr made aware
--- NOTE | 2022-11-04 17:13 | P.PNIM_ITS ---
Subjective Subjective Date of Service: 11/04/22 Interval History: Admitted for alcoholic intoxication, patient found on the floor confused by uncle, at present patient awake alert denies history of daily alcohol use or history of withdrawal, drinks alcohol couple times a week last night had 4 Dada Andre, day prior had 2 beer, denies nausea vomiting, no headache, no withdrawal symptoms no tremors, denies fall, unknown time on floor noted to have elevated CPK and lactic acid. Review of Systems All other system reviewed and negative Physical Exam 2 Vital Signs: Vital Signs: Last Vital Signs Temp 98.4 F 11/04/22 15:38 Pulse 86 11/04/22 15:38 Resp 18 11/04/22 15:38 BP 132/88 11/04/22 15:38 Pulse Ox 99 11/04/22 15:38 O2 Del Method Room Air 11/04/22 15:38 BMI result Body Mass Index 25.8 Const: Other: General awake alert x3, resting comfortably in no acute distress. Neck supple no JVD. CVS regular rate rhythm, Respiratory lungs clear to auscultation, no respiratory distress, no wheeze, no rhonchi. Gastrointestinal abdomen soft, non tender, bowel sounds audible, no guarding , no rigidity. Extremities no edema. Musculoskeletal no bruising, Neuro nonfocal ,speech clear, no tremors. Skin no rash psych appropriate affect Objective Data Active Medications Acetaminophen (Acetaminophen 325 Mg Tablet) 650 mg PO Q6H PRN PRN Reason: Pain, Mild (Pain Scale 1-3) Docusate Sodium (Docusate Sodium 100 Mg Capsule) 100 mg PO DAILY PRN PRN Reason: Constipation Lactated Ringer's (Lr) 1,000 mls @ 125 mls/hr IVCONT .Q8H [facility] Last Admin: 11/04/22 11:59 Dose: 125 mls/hr Documented By: RALU Ondansetron HCl (Ondansetron Hcl 4 Mg/2 Ml Vial) 4 mg IVPUSH Q8H PRN PRN Reason: Nausea and Vomiting Last Admin: 11/04/22 09:11 Dose: 4 mg Documented By: RAUL Pharmacy Consult (Consult Rx Etoh Phenob Im/Po) 1 each MISCELLANE ONCE PRN; Protocol PRN Reason: Consult order Phenobarbital (Phenobarbital 30 Mg Tablet) 60 mg PO BID [facility]; Protocol Stop: 11/05/22 21:01 Last Admin: 11/04/22 09:11 Dose: 60 mg Documented By: RAUL Phenobarbital (Phenobarbital 30 Mg Tablet) 30 mg PO BID [facility]; Protocol Stop: 11/07/22 21:01 Phenobarbital (Phenobarbital 30 Mg Tablet) 30 mg PO DAILY [facility]; Protocol Stop: 11/09/22 09:01 Sodium Chloride (0.9 % Sodium Chloride Flush 3 Ml Syringe) [facility] Last Admin: 11/04/22 12:42 Dose: 3 ml Documented By: SHAYE Labs 11/04/22 05:35 11/04/22 05:35 Labs: Laboratory Results - last 24 hr 11/03/22 11/03/22 11/03/22 16:46 19:44 22:05 MCV MCH MCHC RDW Plt Count MPV Immature Gran % (Auto) Neut % (Auto) Lymph % (Auto) [place] % (Auto) Eos % (Auto) Baso % (Auto) Lymph # (Auto) [place] # (Auto) Eos # (Auto) Baso # (Auto) Abs Immat Gran (auto) Absolute Neuts (auto) Absolute Nucleated RBC Nucleated RBC % (auto) Anion Gap Estim Creat Clear Calc Estimated GFR Random Glucose Lactic Acid Lactic Acid F/U @ 2Hr 4.3 H* Lactic Acid F/U @ 4Hr 4.0 H* Calcium Total Creatine Kinase Urine Opiates Screen Not Detected Urine Fentanyl Screen Not Detected Ur Barbiturates Screen Not Detected Ur Phencyclidine Scrn Not Detected Ur Amphetamines Screen Not Detected U Benzodiazepines Scrn Not Detected Urine Cocaine Screen Not Detected U Marijuana (THC) Screen Not Detected 11/04/22 11/04/22 05:35 13:19 MCV 91.7 MCH 31.4 MCHC 34.2 RDW 11.2 Plt Count 214 MPV 12.0 Immature Gran % (Auto) 0.2 Neut % (Auto) 47.8 Lymph % (Auto) 43.4 H [place] % (Auto) 6.9 Eos % (Auto) 0.8 Baso % (Auto) 0.9 Lymph # (Auto) 2.8 [place] # (Auto) 0.5 Eos # (Auto) 0.1 Baso # (Auto) 0.1 Abs Immat Gran (auto) 0.01 Absolute Neuts (auto) 3.1 Absolute Nucleated RBC 0.000 Nucleated RBC % (auto) 0.0 Anion Gap 17 Estim Creat Clear Calc 138.5 Estimated GFR > 60 Random Glucose 103 Lactic Acid 1.0 Lactic Acid F/U @ 2Hr Lactic Acid F/U @ 4Hr Calcium 8.7 Total Creatine Kinase 1908 H Urine Opiates Screen Urine Fentanyl Screen Ur Barbiturates Screen Ur Phencyclidine Scrn Ur Amphetamines Screen U Benzodiazepines Scrn Urine Cocaine Screen U Marijuana (THC) Screen Assessment and Plan (1) Rhabdomyolysis: Status: Acute (2) Alcoholic ketoacidosis: Status: Acute (3) Alcoholic intoxication: Status: Acute Plan 42-year-old male with no significant past medical history comes into the hospital with complaints of alcohol intoxication # alcoholic ketoacidosis - lactic acid normalized , strongly recommend to abstain from alcohol, normal renal function # Acute rhabdomyolysis - secondary to mechanical fall after alcohol intoxication, CPK bumped from 580 to 1908, continue IV fluids follow CPK she, normal # transaminitis - likely secondary to alcohol abuse, follow LFTs, recommend to abstain from alcohol # alcohol intoxication likely minimizing alcohol intake follow BL[facility] G[employer]obar[employer], addiction medicine consult DVT ppx: early ambulation Time Spent With Patient Time: Total time managing care of this patient today ____ minutes. Quality Stroke Does the patient have a stroke diagnosis?: No VTE Prior VTE?: No VTE Risk Level:: Medical - low VTE Device Contraindication: Treatment Not Indicated VTE Drug Contraindication: Treatment Not Indicated
--- NOTE | 2022-11-04 18:52 | MHC.RECOVRN ---
T/w met with pt to collect substance use history and establish goals of care. Pt awake, alert, pleasant in conversation. Remorseful, stating he feels badly about putting his and children through this . Pt reports he lost his mother when he was in high school, that she passed from cancer and that he was her primary caregiver at the time. He states his father in not in his life. Reports he has uncles and siblings that drink and feels as though it runs in his family. Pt's goal is to stop drinking, states that he started drinking in college and that it was only a few beers at any given time when he drank because he didn't have a lot of money . Pt reports his use is bingeing, he does not drink daily. When he drinks, he drinks 6 beers at a session. States his use has escalated more recently, unable to identify the trigger. Pt is interested in a psych consult to address his mental health. Pt is also interested in [facility], packet of resources provided to pt, plan is to follow up after pt has had time to read the materials. Hospitalist aware of need for psych consult.
[2022-11-05] VITALS: BP 141/87; PULSE 79; RESP 16; TEMP 36.3; O2SAT 99
[2022-11-05] MEDS: Lactated Ringers 1,000 ML 125 ML IVCONT (01:12)
[2022-11-05 04:00] VITALS: BP 140/94; PULSE 75; RESP 16; TEMP 36.1; O2SAT 98
[2022-11-05 06:18] LABS: Alanine Aminotransferase 60 U/L (0-40); Alkaline Phosphatase 63 U/L (39-117); Anion Gap 11 (12-20); Aspartate Amino Transferase 57 U/L (5-37); Bilirubin Direct 0.3 mg/dL (0.0-0.5); Bilirubin Total 1.1 mg/dL (0.0-1.0); Blood Urea Nitrogen 5 mg/dL (9-16); Calcium 9.2 mg/dL (8.4-10.2); Carbon Dioxide 24 mmol/L (22-29); Chloride 105 mmol/L (96-108); Estimated Glomerular Filt Rate > 60; Glucose Random 136 mg/dL (60-115); Potassium 3.4 mmol/L (3.3-5.1); Sodium 137 mmol/L (135-145); Total Protein 6.9 g/dL (6.5-8.0)
[2022-11-05 06:54] VITALS: BP 140/87; PULSE 89; RESP 16; TEMP 36.6; O2SAT 96
--- NOTE | 2022-11-05 10:44 | PM.DS ---
DS: Providers Provider Date of Service: 11/05/22 Date of admission: 11/04/22 10:43 Primary care physician: Unknown Physician Consults: 11/03/22 20:44 Consult to Care Team Stat Comment: Reason for consultation: Requesting Detox 11/04/22 10:41 Addiction Medicine Routine Consulting Provider: Addiction Covering Reason for consultation: etoh Has provider been notified: No DS: Diagnosis Discharge Diagnosis (1) Rhabdomyolysis: Status: Acute (2) Alcoholic ketoacidosis: Status: Acute (3) Alcoholic intoxication: Status: Acute DS: Summary Hospital Course Hospital Course: Date of Service: 11/03/22 Chief Complaint: alcohol intoxication 42-year-old male with prediabetes comes into the hospital after on-call found him to be down. I spoke to his over the phone states that he has been drinking excessively for the past 3 days but has no history of alcohol abuse. Patient himself says that he had alcohol poisoning. He is now alert oriented, answering questions appropriately. Patient denies any chest pain, no shortness of breath, no abdominal pain nausea or vomiting, no diarrhea constipation, no urinary symptoms and no lower extremity edema. On arrival to the ED patient was found to be tachycardic with a heart rate in the 140s, sinus Labs are significant for lactic acid of 5.0 that improved to 4.0 after 4 L of fluids, AST of 48, ALT of 76, CPK of 580 Urine drug screen showed alcohol level of [address] negative, cervical CT negative Given the elevated lactic acid and requiring IV fluids patient will be admitted for observation. Hospital course: 42-year-old male with no significant past medical history comes into the hospital with complaints of alcohol intoxication, elevated CPK and lactic acidosis, patient admitted to medical floor place on IV fluids and CIWA protocol, lactic acid improved and was likely related to alcoholic ketoacidosis, CPK trended down from 1908 to 1420, patient evaluated by Addiction Team he admitted binge drinking, at times he drinks 6 beers at a session, outpatient resources provided to patient and he will be followed by Addiction Team as outpatient, since patient is hemodynamically stable his steady gait, with normal renal function therefore he is being discharged home with recommendation to drink plenty of fluids and to avoid exercise and heavy lifting for 1 week he, he was noted to have mildly elevated liver enzymes likely due to alcohol abuse he has been strongly recommended to completely abstain from alcohol. Discharge diagnosis Alcoholic intoxication Alcoholic ketoacidosis Rhabdomyolysis Transaminitis Time Spent with Patient Time attestation: Total time managing care of this patient today ____ minutes. Discharge coordination time: Greater than 30 minutes Quality: Safe Use of Opioids Does Pt have an Active Cancer Diagnosis on the Problem List?: No Quality: Stroke Does the patient have a stroke diagnosis?: No Physical Exam Vital Signs: Vital Signs: Last Vital Signs Temp 98 F 11/05/22 06:54 Pulse 89 11/05/22 06:54 Resp 16 11/05/22 06:54 BP 140/87 H 11/05/22 06:54 Pulse Ox 96 11/05/22 06:54 O2 Del Method Room Air 11/05/22 06:54 BMI result Body Mass Index 25.8 Const: Other: General awake alert x3, resting comfortably in no acute distress. Neck supple no JVD. CVS regular rate rhythm, Respiratory lungs clear to auscultation, no respiratory distress, no wheeze, no rhonchi. Gastrointestinal abdomen soft, non tender, bowel sounds audible, no guarding , no rigidity. Extremities no edema. Musculoskeletal no bruising, Neuro nonfocal ,speech clear, no tremors. Skin no rash psych appropriate affect DS: Data Data Completed and Pending Labs on day of discharge: Laboratory Results - last 24 hr 11/04/22 11/05/22 13:19 05:31 Sodium 137 Potassium 3.4 Chloride 105 Carbon Dioxide 24 Anion Gap 11 L BUN 5 L Creatinine 0.84 Estim Creat Clear Calc 119.0 Estimated GFR > 60 Random Glucose 136 H Lactic Acid 1.0 Calcium 9.2 Total Bilirubin 1.1 H Direct Bilirubin 0.3 AST 57 H ALT 60 H Alkaline Phosphatase 63 Total Creatine Kinase 1908 H 1420 H Total Protein 6.9 Albumin 4.0 Discharge Plan Discharge Anticipated Discharge Date/Time: 11/05/22 10:06 Patient Disposition: Home, Self-Care Discharge Diagnosis: Alcoholic ketoacidosis Alcohol intoxication Acute rhabdomyolysis Referrals: Physician,Alejandra J [Primary Care Provider] - 1 Week Discharge Medications: No Action No Known Home Meds Discharge Orders: Discharge Order (Routine); Ordered 11/05/22 Ordered By: Mercedes Kerr Diet: Advance to usual diet Activity on Discharge: As tolerated Stand Alone Forms: Patient Portal Discharge page Care Plan Goals: Drink plenty of fluids no heavy lifting ,no exercise for 1 week Complete abstinence from alcohol Health Concerns: Alcohol use disorder Plan of Treatment: Outpatient follow-up with primary care physician Assessment: As above
--- NOTE | 2022-11-05 11:46 | P.PNADD_ITS ---
Subjective Subjective Date of Service: 11/05/22 Reason For Visit: Alcohol intoxification, lactic acidosis Interim History: Patient medically admitted with alcohol withdrawal and rhabdo. Previously seen by wholesale and retail merchant --notes and EMELIA history reviewed. Patient reports that he does not wish to start [facility] at this time, but is interested in other recovery supports. He referenced that folder provided to him with resources, however his has taken it home. He reports his goal is abstinence from alcohol and he is concerned about his overall health. He appears very comfortable, having just showered and in his own clothes. Plan for discharge today. Review of Systems Constitutional: Reports as per HPI and Reports no additional constitutional complaints Mental Status Exam Mental Status Exam Patient Appearance: Well Grooomed and Appropriate Level of Consciousness: Awake and Appropriate Mood Description: Calm Thought Process: Intact Judgement: Good Diagnostics Vital Signs (24Hr): Vital Signs - 24 hr 11/04/22 12:00 11/04/22 15:38 11/04/22 18:00 Temperature 97.0 F 98.4 F Pulse Rate 86 86 82 Respiratory Rate 18 18 Blood Pressure 157/86 H 132/88 141/82 H Pulse Oximetry 94 99 97 Oxygen Delivery Method Room Air Room Air Room Air 11/04/22 19:33 11/05/22 00:00 11/05/22 04:00 Temperature 98 F 97.4 F 97.0 F Pulse Rate 76 79 75 Respiratory Rate 20 16 16 Blood Pressure 143/82 H 141/87 H 140/94 H Pulse Oximetry 98 99 98 Oxygen Delivery Method Room Air Room Air Room Air 11/05/22 06:54 Temperature 98 F Pulse Rate 89 Respiratory Rate 16 Blood Pressure 140/87 H Pulse Oximetry 96 Oxygen Delivery Method Room Air BMI result Body Mass Index 25.8 Labs 11/04/22 05:35 11/05/22 05:31 Labs: Laboratory Results - last 48 hr 11/03/22 11/03/22 11/03/22 15:51 16:26 16:27 WBC 6.5 RBC 5.18 Hgb 16.1 Hct 46.6 MCV 90.0 MCH 31.1 MCHC 34.5 RDW 11.1 Plt Count 235 MPV 11.7 Immature Gran % (Auto) 0.3 Neut % (Auto) 64.8 Lymph % (Auto) 27.9 [place] % (Auto) 3.9 Eos % (Auto) 2.6 Baso % (Auto) 0.5 Lymph # (Auto) 1.8 [place] # (Auto) 0.3 Eos # (Auto) 0.2 Baso # (Auto) 0.0 Abs Immat Gran (auto) 0.02 Absolute Neuts (auto) 4.2 Absolute Nucleated RBC 0.000 Nucleated RBC % (auto) 0.0 PT 12.4 INR 1.0 VBG pH VBG pCO2 VBG pO2 VBG HCO3 VBG O2 Saturation VBG Base Excess Sodium 140 Potassium 3.5 Chloride 106 Carbon Dioxide 18 L Anion Gap 20 BUN 8 L Creatinine 0.77 Estim Creat Clear Calc 138.5 Estimated GFR > 60 POC Glucose 160 H Random Glucose 130 H Lactic Acid 5.0 H* Lactic Acid F/U @ 2Hr Lactic Acid F/U @ 4Hr Calcium 9.0 D Magnesium 2.3 Total Bilirubin 1.3 H Direct Bilirubin 0.4 AST 48 H ALT 76 H Alkaline Phosphatase 69 Ammonia 54 Total Creatine Kinase 580 H Troponin I High Sens < 2.7 Total Protein 7.9 Albumin 4.6 Lipase 27 Urine Color Urine Appearance Urine pH Ur Specific [place] Urine Protein Urine Glucose (UA) Urine Ketones Urine Blood Urine Nitrite Ur Leukocyte Esterase Salicylates < 5.0 L Urine Opiates Screen Urine Fentanyl Screen Acetaminophen < 17 Ur Barbiturates Screen Ur Phencyclidine Scrn Ur Amphetamines Screen U Benzodiazepines Scrn Urine Cocaine Screen U Marijuana (THC) Screen Ethyl Alcohol 354 H* 11/03/22 11/03/22 11/03/22 16:31 16:46 19:44 WBC RBC Hgb Hct MCV MCH MCHC RDW Plt Count MPV Immature Gran % (Auto) Neut % (Auto) Lymph % (Auto) [place] % (Auto) Eos % (Auto) Baso % (Auto) Lymph # (Auto) [place] # (Auto) Eos # (Auto) Baso # (Auto) Abs Immat Gran (auto) Absolute Neuts (auto) Absolute Nucleated RBC Nucleated RBC % (auto) PT INR VBG pH 7.41 VBG pCO2 28 VBG pO2 103 VBG HCO3 18 L VBG O2 Saturation 97.0 VBG Base Excess -4.5 Sodium Potassium Chloride Carbon Dioxide Anion Gap BUN Creatinine Estim Creat Clear Calc Estimated GFR POC Glucose Random Glucose Lactic Acid Lactic Acid F/U @ 2Hr 4.3 H* Lactic Acid F/U @ 4Hr Calcium Magnesium Total Bilirubin Direct Bilirubin AST ALT Alkaline Phosphatase Ammonia Total Creatine Kinase Troponin I High Sens Total Protein Albumin Lipase Urine Color Yellow Urine Appearance Clear Urine pH 6.0 Ur Specific [place] <= 1.005 Urine Protein Negative Urine Glucose (UA) Negative Urine Ketones Negative Urine Blood Negative Urine Nitrite Negative Ur Leukocyte Esterase Negative Salicylates Urine Opiates Screen Not Detected Urine Fentanyl Screen Not Detected Acetaminophen Ur Barbiturates Screen Not Detected Ur Phencyclidine Scrn Not Detected Ur Amphetamines Screen Not Detected U Benzodiazepines Scrn Not Detected Urine Cocaine Screen Not Detected U Marijuana (THC) Screen Not Detected Ethyl Alcohol 11/03/22 11/04/22 11/04/22 22:05 05:35 13:19 WBC 6.5 RBC 4.56 L Hgb 14.3 Hct 41.8 L MCV 91.7 MCH 31.4 MCHC 34.2 RDW 11.2 Plt Count 214 MPV 12.0 Immature Gran % (Auto) 0.2 Neut % (Auto) 47.8 Lymph % (Auto) 43.4 H [place] % (Auto) 6.9 Eos % (Auto) 0.8 Baso % (Auto) 0.9 Lymph # (Auto) 2.8 [place] # (Auto) 0.5 Eos # (Auto) 0.1 Baso # (Auto) 0.1 Abs Immat Gran (auto) 0.01 Absolute Neuts (auto) 3.1 Absolute Nucleated RBC 0.000 Nucleated RBC % (auto) 0.0 PT INR VBG pH VBG pCO2 VBG pO2 VBG HCO3 VBG O2 Saturation VBG Base Excess Sodium 143 Potassium 3.8 Chloride 110 H Carbon Dioxide 20 L Anion Gap 17 BUN 7 L Creatinine 0.77 Estim Creat Clear Calc 138.5 Estimated GFR > 60 POC Glucose Random Glucose 103 Lactic Acid 1.0 Lactic Acid F/U @ 2Hr Lactic Acid F/U @ 4Hr 4.0 H* Calcium 8.7 Magnesium Total Bilirubin Direct Bilirubin AST ALT Alkaline Phosphatase Ammonia Total Creatine Kinase 1908 H Troponin I High Sens Total Protein Albumin Lipase Urine Color Urine Appearance Urine pH Ur Specific [place] Urine Protein Urine Glucose (UA) Urine Ketones Urine Blood Urine Nitrite Ur Leukocyte Esterase Salicylates Urine Opiates Screen Urine Fentanyl Screen Acetaminophen Ur Barbiturates Screen Ur Phencyclidine Scrn Ur Amphetamines Screen U Benzodiazepines Scrn Urine Cocaine Screen U Marijuana (THC) Screen Ethyl Alcohol 11/05/22 05:31 WBC RBC Hgb Hct MCV MCH MCHC RDW Plt Count MPV Immature Gran % (Auto) Neut % (Auto) Lymph % (Auto) [place] % (Auto) Eos % (Auto) Baso % (Auto) Lymph # (Auto) [place] # (Auto) Eos # (Auto) Baso # (Auto) Abs Immat Gran (auto) Absolute Neuts (auto) Absolute Nucleated RBC Nucleated RBC % (auto) PT INR VBG pH VBG pCO2 VBG pO2 VBG HCO3 VBG O2 Saturation VBG Base Excess Sodium 137 Potassium 3.4 Chloride 105 Carbon Dioxide 24 Anion Gap 11 L BUN 5 L Creatinine 0.84 Estim Creat Clear Calc 119.0 Estimated GFR > 60 POC Glucose Random Glucose 136 H Lactic Acid Lactic Acid F/U @ 2Hr Lactic Acid F/U @ 4Hr Calcium 9.2 Magnesium Total Bilirubin 1.1 H Direct Bilirubin 0.3 AST 57 H ALT 60 H Alkaline Phosphatase 63 Ammonia Total Creatine Kinase 1420 H Troponin I High Sens Total Protein 6.9 Albumin 4.0 Lipase Urine Color Urine Appearance Urine pH Ur Specific [place] Urine Protein Urine Glucose (UA) Urine Ketones Urine Blood Urine Nitrite Ur Leukocyte Esterase Salicylates Urine Opiates Screen Urine Fentanyl Screen Acetaminophen Ur Barbiturates Screen Ur Phencyclidine Scrn Ur Amphetamines Screen U Benzodiazepines Scrn Urine Cocaine Screen U Marijuana (THC) Screen Ethyl Alcohol Imaging Radiology Impressions: ITS Impressions Cervical Spine CT 11/03/22 17:34 IMPRESSION: 1. No acute intracranial pathology. 2. No CT evidence of acute cervical spine fracture or traumatic subluxation Head CT 11/03/22 17:34 IMPRESSION: 1. No acute intracranial pathology. 2. No CT evidence of acute cervical spine fracture or traumatic subluxation Medications Medications Current Medications Acetaminophen (Acetaminophen 325 Mg Tablet) 650 mg PO Q6H PRN PRN Reason: Pain, Mild (Pain Scale 1-3) Docusate Sodium (Docusate Sodium 100 Mg Capsule) 100 mg PO DAILY PRN PRN Reason: Constipation Lactated Ringer's (Lr) 1,000 mls @ 125 mls/hr IVCONT .Q8H TEODORA Last Infusion: 11/05/22 11:02 Dose: Infused Ondansetron HCl (Ondansetron Hcl 4 Mg/2 Ml Vial) 4 mg IVPUSH Q8H PRN PRN Reason: Nausea and Vomiting Last Admin: 11/04/22 09:11 Dose: 4 mg Pharmacy Consult (Consult Rx Etoh Phenob Im/Po) 1 each MISCELLANE ONCE PRN; Protocol PRN Reason: Consult order Sodium Chloride (0.9 % Sodium Chloride Flush 3 Ml Syringe) 3 ml IVFLUSH QSHIFT [facility] Last Admin: 11/05/22 08:05 Dose: Not Given Allergies Allergies Allergy/AdvReac Type Severity Reaction Status Date / Time No Known Allergies Allergy Unverified 06/23/22 13:15 [No Known Allergies*] Assessment & Plan Assessment & Plan (1) Alcohol use disorder, moderate, dependence: Status: Acute Code(s): F10.20 - Alcohol dependence, uncomplicated Assessment and Plan: * risk reduction discussion * plan for wholesale and retail merchant to follow up on Monday morning to discuss outpatient treatment plan Total time managing care of this patient today 25____ minutes.
== END 2022-11-05 12:17 | disposition home or self-care (01) | DRG 351 ==
LOC: HO.ED 23:15 → HO.EDOVER 11-04 00:04 → HO.S3 11-04 11:12
PROVIDERS: Emergency Medicine; Admitting Provider Internal Medicine; Emergency Provider Student in an Organized Health Care Education/Training Program; Visit Provider Hospitalist
DX: M62.82 Rhabdomyolysis (principal); E87.29 Other acidosis; F10.129 Alcohol abuse with intoxication, unspecified; Y90.8 Blood alcohol level of 240 mg/100 ml or more
CPT/HCPCS: 36415; 70450; 72125; 80048; 80076; 80143; 80179; 80307; 81003; 82140; 82550; 82803; 82947; 83605; 83690; 83735; 84484; 85025; 85610; 93005; 99285; J2060; J2405; J2560; J3411

== ENCOUNTER → 2022-11-03 23:50 | Outpatient (BNV) | payer OTHER, SELFPAY | PROVIDERS: Admitting Provider Internal Medicine; Emergency Provider Student in an Organized Health Care Education/Training Program; Visit Provider Internal Medicine | DX: M62.82 Rhabdomyolysis (principal); E87.29 Other acidosis; F10.929 Alcohol use, unspecified with intoxication, unspecified | CPT/HCPCS: 99222; 99233; 99239 ==

== ENCOUNTER → 2022-11-04 10:43 | Outpatient (BNV) | payer OTHER, SELFPAY | PROVIDERS: Admitting Provider Internal Medicine; Emergency Provider Student in an Organized Health Care Education/Training Program; Visit Provider Nurse Practitioner Psychiatric/Mental Health | DX: F10.20 Alcohol dependence, uncomplicated (principal) | CPT/HCPCS: 99232 ==